=== PATIENT | female | born 1935 | race Caucasian/White ===

== ENCOUNTER 2017-06-10 07:13 | Outpatient (CLI) | payer SELFPAY ==
[~2017-06-10 07:13] MED LIST: GABA-532 PO; METF500T7 PO; METO25TA6 PO; NORT25CA5 PO; OMEG1CAP PO; OMEP20CA10 PO; PRAV40TA3 PO; RESV250C2 PO; VALS1TAB81 PO
== END 2017-06-10 23:59 | disposition home or self-care (01) ==
LOC: VAS 07:13
DX: Z01.89 Encounter for other specified special examinations (principal)

== ENCOUNTER 2023-12-13 11:39 | Emergency (ER) | payer BC, SELFPAY ==
[~2023-12-13] VITALS: Ht 165.1 cm; Wt 95.0 kg
[~2023-12-13 11:39] MED LIST changes: +LOP25T PO; +METF-900 PO; -METF500T7 PO; -METO25TA6 PO; -OMEG1CAP PO; +OMEG1CAP61 PO; -OMEP20CA10 PO; +OMEP20CA15 PO
[2023-12-13 11:49] VITALS: TEMP 97.4
[2023-12-13] MEDS ORDERED: LIDO700A32 TD (14:49)
[2023-12-13] MEDS ORDERED: TRAM50TA2 PO (14:50)
[2023-12-13] MEDS: traMADol 50MG tablet PO ONE (14:52)
[2023-12-13] MEDS: LIDOcaine 5% patch TP ONE (14:53)
[2023-12-13 14:58] VITALS: BP 139/70; PULSE 70; RESP 18; O2SAT 97
== END 2023-12-13 15:00 | disposition home or self-care (01) ==
LOC: ER 11:40
DX: S22.42XA Multiple fractures of ribs, left side, initial encounter for closed fracture (principal); S50.812A Abrasion of left forearm, initial encounter; Z79.899 Other long term (current) drug therapy; Z79.84 Long term (current) use of oral hypoglycemic drugs; W01.0XXA Fall on same level from slipping, tripping and stumbling without subsequent striking against object, initial encounter; Y93.89 Activity, other specified; Y92.89 Other specified places as the place of occurrence of the external cause; Y99.8 Other external cause status
CPT/HCPCS: 71100; 73030; 99284

== ENCOUNTER 2024-06-15 16:13 | Emergency (ER) | payer BC ==
[~2024-06-15] VITALS: Ht 167.6 cm; Wt 96.8 kg
[~2024-06-15 16:13] MED LIST changes: +LIDO700A32 TD
[2024-06-15 16:28] VITALS: TEMP 98.5
[2024-06-15 17:08] LABS: BASOPHILS # (AUTO) 0.1 X10'3 (0-0.2); BASOPHILS % (AUTO) 0.9 % (0-1); EOSINOPHILS # (AUTO) 0.2 X10'3 (0-0.9); EOSINOPHILS % (AUTO) 2.1 % (0-6); HEMATOCRIT 40.8 % (35.0-45.0); HEMOGLOBIN 13.5 g/dl (12.0-16.0); LYMPHOCYTES # (AUTO) 3.2 X10'3 (1.1-4.8); LYMPHOCYTES % (AUTO) 32.2 % (21-51); MEAN CORPUSCULAR HEMOGLOBIN 30.4 PG (27.0-31.0); MEAN CORPUSCULAR HGB CONC 33.1 g/dL (33.0-36.5); MEAN CORPUSCULAR VOLUME 91.8 FL (78-98); MEAN PLATELET VOLUME 10.5 FL (7.4-10.4); MONOCYTES # (AUTO) 0.7 X10'3 (0-0.9); NEUTROPHILS # (AUTO) 5.8 X10'3 (1.8-7.7); NEUTROPHILS % (AUTO) 57.8 % (42-75); PLATELET COUNT 272 X10'3 (140-440); RED BLOOD COUNT 4.44 X10'6 (4.20-5.60); WHITE BLOOD COUNT 10.1 X10'3 (4.5-11.0)
[2024-06-15 17:27] LABS: ALANINE AMINOTRANSFERASE 22 U/L (12-78); ALBUMIN 3.7 G/DL (3.4-5.0); ALBUMIN/GLOBULIN RATIO 0.9 (1.1-1.5); ALKALINE PHOSPHATASE 96 IU/L (46-116); ANION GAP 6 (8-16); ASPARTATE AMINO TRANSFERASE 11 U/L (10-37); BILIRUBIN,TOTAL 0.3 MG/DL (0.1-1.0); BLOOD UREA NITROGEN 29 MG/DL (7-18); BUN/CREATININE RATIO 26.6 (10.0-20.0); CALCIUM 9.9 MG/DL (8.5-10.1); CHLORIDE 103 MMOL/L (99-107); CREATININE 1.09 MG/DL (0.40-0.90); GLUCOSE 137 MG/DL (70-104); POTASSIUM 3.6 MMOL/L (3.5-5.1); SODIUM 141 MMOL/L (135-145); TOTAL CARBON DIOXIDE 32.5 MMOL/L (24-32); TOTAL PROTEIN 7.7 G/DL (6.4-8.2); eCRCL 33 ML/MIN; eGFR 47 ML/MIN
[2024-06-15 17:28] LABS: PRO BRAIN NATRIURETIC PEPTIDE 894 PG/ML (0-450)
[2024-06-15 21:30] VITALS: BP 142/56; PULSE 119; RESP 17; O2SAT 99
== END 2024-06-15 22:36 | disposition left against medical advice (07) ==
LOC: ER 16:13
DX: R00.0 Tachycardia, unspecified (principal); Z53.21 Procedure and treatment not carried out due to patient leaving prior to being seen by health care provider
CPT/HCPCS: 36415; 71045; 80053; 83880; 84484; 85025; 93005